=== PATIENT | female | born 1970 | race Caucasian/White ===

== ENCOUNTER 2018-10-31 18:46 | Emergency (ER) | payer MEDICAID, SELFPAY ==
[2018-10-31 18:47] VITALS: BP 122/85; PULSE 90; RESP 18; TEMP 37.1; O2SAT 98; BMI 21.9
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
[2018-10-31] MEDS: Morphine 4 MG/ML Syringe IV ×2 (19:25→21:16)
[2018-10-31] MEDS: Ondansetron 4 MG/2 ML Vial IV (19:25)
[2018-10-31] MEDS: 0.9% Normal Saline 1,000 ML 150 ML IV (19:26)
[2018-10-31] MEDS: Diphth,Pertuss(Acell),Tet Vac 0.5 ML Vial IM (19:30)
[2018-10-31 19:40] LABS: Hematocrit 39.6 % (37-47); Mean Corp Hgb Conc 32.8 g/gl (32-36); Mean Corpuscular Hgb 31.8 pg (27.0-32.0); Mean Corpuscular Volume 96.8 fL (81-99); Platelet Count 261 K/mm3 (150-450); RBC Distribution Width CV 12.8 % (11.6-14.6); RBC Distribution Width SD 44.9 fl (35.1-43.9); Red Blood Count 4.09 M/mm3 (4.2-5.4); White Blood Count 10.1 K/mm3 (4.4-11.0)
[2018-10-31 19:41] LABS: Absolute Lymphocyte Count 2.05 X10^3/ul (0.83-4.51); Absolute Neutrophil Count 7.5 X10^3/uL (2.0-7.7); Basophil# 0.03 X10^3/uL; Basophil% 0.3 % (0-1); Eosinophil# 0.07 X10^3/uL; Eosinophils% 0.7 % (0-5); Lymphocyte # 2.05 X10^3/ul (4.0); Lymphocyte % 20.3 % (19-41); Mean Platelet Vol. 11.7 fl (6.2-12.0); Neutrophil # 7.53 X10^3/uL (2.7-7.7); Neutrophil % 74.7 % (47-70); POSITIVE COUNT NO; POSITIVE DIFFERENTIAL NO; POSITIVE MORPHOLOGY NO
[2018-10-31 19:59] LABS: ALB/GLOB Ratio 1.2 RATIO (0.9-2.4); AST(SGOT) 201 U/L (15-37); Alanine Aminotransfer ALT/SGPT 136 U/L (13-56); Albumin, Serum 3.9 g/dL (3.2-5.0); Alkaline Phosphatase 38 U/L (45-117); Anion Gap 5 (5-15); BUN 14 mg/dL (7-18); BUN/Creat Ratio 17.4 RATIO (10-20); Calcium,Total 8.8 mg/dL (8.5-10.1); Chloride 107 mmol/L (98-107); EST Glomerular Filtration Rate 82 mL/min (>60); Est Glom Filt Rate - Afr Amer 99 mL/min (>60); Estimated Creatinine Clearance 70.24 ml/min; Globulin 3.2 g/dL (2.2-4.2); Glucose 123 mg/dL (74-106); Potassium 3.5 mmol/L (3.5-5.1); Protein, Total 7.1 g/dL (6.4-8.2); Sodium Level 140 mmol/L (136-145)
[2018-10-31 20:18] LABS: Pregnancy, Serum, hCG Quali. NEGATIVE Negative (0-9 Nonpreg)
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
[2018-10-31 21:21] VITALS: BP 112/82; PULSE 82; RESP 18; O2SAT 96
[2018-10-31 22:16] VITALS: BP 112/78; PULSE 70; RESP 16; O2SAT 97
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
== END 2018-10-31 22:18 | disposition home or self-care (01) ==
LOC: ED 19:31
PROVIDERS: Emergency Provider Emergency Medicine
DX: S27.321A Contusion of lung, unilateral, initial encounter (principal); S36.112A Contusion of liver, initial encounter; S09.90XA Unspecified injury of head, initial encounter; Z72.0 Tobacco use; V44.6XXA Car passenger injured in collision with heavy transport vehicle or bus in traffic accident, initial encounter; Y93.I9 Activity, other involving external motion; Y92.410 Unspecified street and highway as the place of occurrence of the external cause; Y99.8 Other external cause status
CPT/HCPCS: 70450; 71260; 72125; 74177; 80053; 80320; 84484; 84703; 85025; 90715; 93005; 96361; 96374; 96375; 96376; 99285; J7030; Q9967; A4216; G0480; J2405